=== PATIENT | female | born 1980 | race Caucasian/White ===

== ENCOUNTER 2023-02-13 15:24 | Emergency (ER) | payer SELFPAY ==
[2023-02-13] MEDS ORDERED: HYDROMORPHONE 1 MG/1 ML DISP.SYRIN ONE (19:59)
[2023-02-13] MEDS ORDERED: ONDANSETRON 4 MG/2 ML VIAL ONE (19:59)
== END 2023-02-17 14:16 | disposition left against medical advice (07) ==
LOC: CANPREER → ER 15:24
DX: F41.9 Anxiety disorder, unspecified (principal); Z76.0 Encounter for issue of repeat prescription; Z53.21 Procedure and treatment not carried out due to patient leaving prior to being seen by health care provider
CPT/HCPCS: A4606; A4663; J1170; J2405